=== PATIENT | female | born 1985 | race African-American/Black ===

== ENCOUNTER 2017-12-16 11:28 | Emergency (ER) | payer OTHER, MEDICAID ==
[~2017-12-16] VITALS: Ht 175.3 cm; Wt 90.7 kg
[~2017-12-16 11:28] MED LIST: AMOXICILLIN500 M1 PO; CIPROFLOXACIN500 M1 PO; NOHOMEMEDICATIONS; NORCO 5-325 TA1 EACH PO; POLYMYXIN B/TMP10 ML OP; SILVADENE20 GM TP; TESSALON PERLE100 MG PO; VICODIN 5-5001 EACH PO
[2017-12-16] MEDS ORDERED: NORCO 5-325 TA1 EACH PO (12:37)
[2017-12-16 13:00] VITALS: BP 108/85
== END 2017-12-16 13:06 | disposition home or self-care (01) ==
LOC: M.ERS 11:28
DX: S82.891A Other fracture of right lower leg, initial encounter for closed fracture (principal); J02.9 Acute pharyngitis, unspecified; F17.210 Nicotine dependence, cigarettes, uncomplicated; X58.XXXA Exposure to other specified factors, initial encounter; Y93.89 Activity, other specified; Y92.89 Other specified places as the place of occurrence of the external cause; Y99.8 Other external cause status

== ENCOUNTER 2018-07-24 18:43 | Emergency (ER) | payer OTHER ==
[~2018-07-24] VITALS: Ht 175.3 cm; Wt 90.7 kg
[2018-07-24 19:47] LABS: INFLUENZA A ANTIGEN None Detected (None Detect); INFLUENZA B ANTIGEN None Detected (None Detect)
[2018-07-24] MEDS ORDERED: KEFLEX500 M1 PO (19:50)
[2018-07-24] MEDS ORDERED: IBUPROFEN 800800 M1 PO (19:50)
[2018-07-24 20:08] VITALS: BP 120/85
== END 2018-07-24 20:08 | disposition home or self-care (01) ==
LOC: M.ERS 18:43
PROVIDERS: Physician Assistant
DX: J02.9 Acute pharyngitis, unspecified (principal); F17.210 Nicotine dependence, cigarettes, uncomplicated

== ENCOUNTER 2018-09-22 20:08 | Emergency (ER) | payer OTHER ==
[~2018-09-22] VITALS: Ht 175.3 cm; Wt 90.7 kg
[~2018-09-22 20:08] MED LIST changes: +IBUPROFEN 800800 M1 PO; +KEFLEX500 M1 PO
[2018-09-22 21:01] LABS: ABSOLUTE BASOPHILS 0.1 thou/uL (0.0-0.2); ABSOLUTE EOSINOPHILS 0.1 thou/uL (0.0-0.7); ABSOLUTE LYMPHOCYTES 3.2 thou/uL (0.8-5.3); ABSOLUTE MONOCYTES 0.8 thou/uL (0.0-1.2); BASOPHILS 0.8 %; EOSINOPHILS 1.3 %; HEMATOCRIT 39.9 % (37.0-47.0); HEMOGLOBIN 13.8 gm/dL (12.0-15.0); LYMPHOCYTES 34.7 %; MCH 30.5 pg (26.0-34.0); MCHC 34.6 g/dL (28.0-37.0); MCV 88.2 fL (80.0-100.0); MONOCYTES 8.8 %; MPV 8.2 fl. (7.2-11.1); NUCLEATED RBCS 0 /100WBC; PLATELET COUNT* 182 thou/uL (150-400); POLYS 54.4 %; RBC 4.53 mil/uL (4.20-5.00); RDW-CV 13.9 % (10.5-14.5); WBC 9.1 thou/uL (4.0-11.0)
[2018-09-22 21:34] LABS: ALBUMIN 3.3 g/dL (3.4-5.0); ALKALINE PHOSPHATASE 84 U/L (46-116); ANION GAP 7 mmol/L (7-16); BUN 8 mg/dL (7-18); CALCIUM 8.8 mg/dL (8.5-10.1); CHLORIDE 102 mmol/L (98-107); CO2 26 mmol/L (21-32); CREATININE 0.8 mg/dL (0.6-1.3); GLUCOSE 108 mg/dL (70-99); POTASSIUM 4.3 mmol/L (3.5-5.1); SGOT 18 U/L (15-37); SGPT 31 U/L (30-65); SODIUM 135 mmol/L (136-145); TOTAL BILIRUBIN 0.3 mg/dL (<0.1-1.0); TOTAL PROTEIN 7.7 g/dL (6.4-8.2); TROPONIN-I LEVEL <0.06 ng/mL (<0.06)
[2018-09-22 22:45] LABS: URINE BILIRUBIN NEGATIVE (Negative); URINE BLOOD 1+ (Negative); URINE CLARITY CLEAR; URINE COLOR YELLOW; URINE GLUCOSE-RANDOM NEGATIVE (Negative); URINE KETONES NEGATIVE (Negative); URINE LEUKOCYTES-REFLEX 1+ (Negative); URINE NITRITE-REFLEX NEGATIVE (Negative); URINE PROTEIN NEGATIVE (Negative); URINE UROBILINOGEN 0.2 E.U./dl (0.2-1.0)
[2018-09-22 22:55] LABS: MUCUS 0-3 Light strn/LPF (None Seen); SQUAMOUS >10 Many /LPF (0-3); URINE WBC-REFLEX 0-5 Rare /HPF (0-5)
[2018-09-22 22:56] LABS: CASTS None Seen /LPF (None Seen); CRYSTALS None Seen /LPF (None Seen); URINE RBC 0-2 Rare /HPF (0-2)
[2018-09-23 00:34] VITALS: BP 116/54
--- NOTE | 2018-09-23 17:07 | EKG ---
[place] [address] ELECTROCARDIOGRAM REPORT Name: GLORIA WILKINS Room: [facility]#: [id number] Admission: 09/22/18 Attend Phys: Discharge: 09/23/18 Date of : 89 Report #: [id number] THIS REPORT FOR: //name// [facility] ED Test Date: 2018-09-22 Test Time: 20:15:14 Pat Name: GLORIA WILKINS Department: Room: Gender: F Business Travel Consultant: RAFAEL : 1985 Requested By: Daxa Aviles Order Number: [id number] Reading MD: Elton Molina Measurements Intervals [place] Rate: 85 P: 48 HI: 145 QRS: 23 QRSD: 76 T: 28 QT: 339 QTc: 403 Interpretive Statements Sinus rhythm Compared to ECG 02/08/2016 09:27:46 ST (T wave) deviation no longer present Electronically Signed On 09-23-2018 17:07:34 CDT by Elton Molina [email or web address] <ELECTRONICALLY SIGNED> By: Elton Molina MD, [facility] 09/23/18 1707 14 14 Elton Molina MD, FACC /EPI
== END 2018-09-23 00:34 | disposition home or self-care (01) ==
LOC: M.ERS 20:08
PROVIDERS: Emergency Medicine
DX: R06.00 Dyspnea, unspecified (principal); F17.210 Nicotine dependence, cigarettes, uncomplicated; Z79.899 Other long term (current) drug therapy